=== PATIENT | female | born 1950 | race Caucasian/White ===

== ENCOUNTER 2021-11-29 12:41 | Outpatient (CLI) | payer MEDICARE, BC, SELFPAY ==
--- NOTE | 2021-11-29 13:00 | CRLHL7_ITS ---
For Patients: As a result of the Century Cures Act, medical imaging exams and procedure reports are released immediately into your electronic medical record. You may view this report before your referring provider. If you have questions, please contact your health care provider. DXA BONE MINERAL DENSITY STUDY Reason for exam: Screening. Current height (in): 65. Weight (lb): 125. Menopause age: 50. Ethnicity: White. 1. Have you had a previous hip or vertebral fracture? No. 2. Have you had any fractures during your adult life which did not result from significant trauma (e.g., auto accident)? No. 3. Did either of your parents have a hip fracture? No. 4. Do you smoke? No. 5. Have you ever taken Glucocorticoids? No. 6. Do you have rheumatoid arthritis? No. 7. Do you have secondary osteoporosis? No. 8. Do you drink 3 or more alcoholic drinks per day? No. 9. Are you being treated for osteoporosis? No. 10. Have you ever taken any of the following medications: Actonel, Evista, Fosamax, Miacalcin, Reclast, Boniva, Forteo, HRT (i.e. estrogen/hormone therapy), Protelos, Prolia, Vitamin D, Calcium, other ??? please specify. ANSWER: Yes, Fosamax, vitamin D. 11. Do you have any of the following medical conditions: Anorexia or bulimia, asthma or emphysema, end stage renal disease, hyperparathyroidism, any seizure disorders, cancer, inflammatory bowel diseases, hysterectomy, other ??? please specify. ANSWER: No. 12. What was your maximum height (inches)? 65.5. 13. Do you perform weight bearing exercise regularly? No. 14. Do you regularly consume dairy products? Yes. 15. Do you drink caffeinated beverages? Yes. If female: 16. At what age did your period start? 12. 17. Are you premenopausal? No. 18. How many full term pregnancies have you had? 2. 19. Have you ever missed your period for more than 6 months in a row (not including or menopause)? No. TECHNIQUE: Bone mineral density study was performed using the [employer]. FINDINGS: The results of the study expressed as bone mineral density (BMD) are as follows: Lumbar spine L1 to L4: BMD: 0.963 g/cm2. T-score: -0.8. Z-score: 1.5 Neck Left: BMD: 0.620 g/cm2. T-score: -2.1. Z-score: -0.1 Right: BMD: 0.681 g/cm2. T-score: -1.5. Z-score: 0.5 Total Left: BMD: 0.819 g/cm2. T-score: -1.0. Z-score: 0.7 Right: BMD: 0.887 g/cm2. T-score: -0.5. Z-score: 1.2 IMPRESSION: Osteopenia. FRAX 10-year Fracture Risk Major Osteoporotic Fracture: 12% Hip Fracture: 2.9% Reported Risk Factors: [place] () Neck BMD=0.620, BMI= 20.8 Yamil Wilder M.D. Diagnostic Radiologist [email or web address] KWASI/rc tatum/Dictated by: Yamil Wilder MD @ 11/30/2021 8:13:00 AM (Electronically Signed)
== END 2021-11-29 12:42 | disposition home or self-care (01) ==
PROVIDERS: PCP Family Medicine; Visit Provider Family Medicine
DX: Z13.820 Encounter for screening for osteoporosis (principal); M85.88 Other specified disorders of bone density and structure, other site; Z78.0 Asymptomatic menopausal state
CPT/HCPCS: 77080

== ENCOUNTER 2022-11-20 11:20 | Outpatient (CLI) | payer MEDICARE, BC, SELFPAY | END 2022-11-20 11:21 | disposition home or self-care (01) | PROVIDERS: PCP Family Medicine; Visit Provider Family Medicine | DX: Z00.00 Encounter for general adult medical examination without abnormal findings (principal); E78.00 Pure hypercholesterolemia, unspecified; I10 Essential (primary) hypertension; R53.83 Other fatigue; M85.80 Other specified disorders of bone density and structure, unspecified site; R19.8 Other specified symptoms and signs involving the digestive system and abdomen; R00.2 Palpitations; Z87.898 Personal history of other specified conditions | CPT/HCPCS: 80053; 80061; 82306; 84443 ==

== ENCOUNTER 2023-12-30 08:23 | Outpatient (CLI) | payer MEDICARE, BC, SELFPAY ==
--- OUTSIDE RECORDS SUMMARY | 2023-12-31 11:55 | XMS_ITS | Encounter Summary ---
Author Organization [facility] Address [address] [place] [address] Care Team Providers Care Hydrometer Tester Name Role Phone Mounika Vidal APRN C.NToddPTodd, M.S.N. Primary Car e Provider Reason for Visit * Outpatient (Routine) - Closed Specialty Diagnoses / Procedures Referred By Bk lnad Referred To Contact Otorhinolaryngology Adalgisa Bundy P.ATodd-CTodd [address] [place] [address] Phone: tel: fax: [facility] Region Referral ID Status Reason Start Date Expiration Date Visits Re quested Visits Authorized [id number] Closed 12/02/2022 12/01/2025 1 1 Encounter Details Date Type Department Care Team (Latest Contact Info) Description 10/06/2023 10:30 AM CDT Office Visit Department of Otorhinolaryngology in [place], [place] [address] [place] [address] Adalgisa Bundy P.ATodd-CTodd [address] [place] [address] Loss Hearing Conductive Unilateral (Primary Dx); Loss Hearing Sensory Unilateral; Mastoid Disorder Left Social History Tobacco Use Types Packs/Day Years Used Date Smoking Tobacco: Former Cigarettes Smokeless Tobacco: Never Alcohol Use Standard Drinks/Week Comments Yes 0 (1 standard drink = 0.6 oz pur e alcohol) [facility] Utilities Answer Date Recorded In the past 12 months has th e electric, gas, oil, or water company threatened to shut off services in your home? No 10/02/2023 Humiliation, Afraid, Rape, and Kick questionnair e Answer Date Recorded Within the last year, have y ou been afraid of your partner or ex-partner? No 09/23/2022 Within the last year, have y ou been humiliated or emotionally abused in other ways by your partner or ex-partner? No Within the last year, have y ou been kicked, hit, slapped, or otherwise physically hurt by your partner or ex-partner? No 09/23/2022 Within the last year, have y ou been raped or forced to have any kind of sexual activity by your partner or ex-partner? No 09/23/2022 Social Connection and Isolat ion Panel [NHANES] Answer Date Recorded In a typical week, how many times do you talk on the phone with family, friends, or neighbors? More than three times a week 08/11/2020 How often do you get togethe r with friends or relatives? Once a week 08/11/2020 How often do you attend chur ch or amish services? More than 4 times per year 08/11/2020 Do you belong to any clubs o r organizations such as congregation groups, unions, fraternal or athletic groups, or school groups? Yes 08/11/2020 How often do you attend meet ings of the clubs or organizations you belong to? More than 4 times per year 08/11/2020 Are you , , di vorced, , never , or living with a partner? 08/11/2020 AUDIT-C Answer Date Recorded Q1: How often do you have a drink containing alc ohol? 2-3 times a week 08/11/2020 Q2: How many drinks containi ng alcohol do you have on a typical day when you are drinking? 1 or 2 08/11/2020 Q3: How often do you have si x or more drinks on one occasion? Never 08/11/2020 Overall Financial Resource Strain (CARDIA) Answe r Date Recorded How hard is it for you to pa y for the very basics like food, housing, medical care, and heating? Not hard at all 09/23/2022 PHQ-2 Answer Date Recorded PHQ-2 Score 0 07/19/2021 [facility] - Occupational Stress Questionnaire Answer Date Recorded Do you feel stress - tense, restless, nervous, or anxious, or unable to sleep at night because your mind is troubled all the time - these days? Only a little 08/11/2020 Exercise Vital Sign Answer Date Recorde d On average, how many days pe r week do you engage in moderate to strenuous exercise (like a brisk walk)? 3 days 10/02/2023 On average, how many minutes do you engage in exercise at this level? 50 min 10/02/2023 Hunger Vital Sign Answer Date Recorded Within the past 12 months, y ou worried that your food would run out before you got the money to buy more. Never true 10/02/19 24 Within the past 12 months, t he food you bought just didn't last and you didn't have money to get more. Never true 10/02/2023 PRAPARE - Transportation Answer Date Re corded In the past 12 months, has l ack of transportation kept you from medical appointments or from getting medications? No 03/2023 In the past 12 months, has l ack of transportation kept you from meetings, work, or from getting things needed for daily living? No 10/02/2023 Nutrition Answer Date Recorded On average, how many serving s of fruits and vegetables do you eat per day (serving size is equal to 1 cup or approximately the size of a tennis ball)? 0-2 10/02/2023 Dental Answer Date Recorded Dental: Regular Dentist Yes 03/08/19 Employment Answer Date Recorded Employment status Retired 10/02/2023 Housing Stability Answer Date Recorded What is your living situation today? I have a [facility] place to live 10/02/2023 Education Answer Date Recorded What is the highest level of school you have completed or the highest degree you have received? 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 - 10/06/2023 10:30 AM CDT SUBJECTIVE CHIEF COMPLAINT/REASON FOR VISIT Ear check and cleaning HISTORY OF PRESENT ILLNESS Laverne Birmingham is a pleasant 73 y.o. female here for left mastoid cleaning. She has previouslyfollowed with myself and [place] [facility] for left mastoid cleanings every 6 months, also is establishedwith ENT in [place] who takes care of her ear during the winter months. Laverne is status post left ty mpanomastoidectomy with PORP ossiculoplasty for cholesteatoma removal in June of [address] Armstrong. She does continue to note intermittent drainage or moisture in the left side, does not use drops unless drainage is significantly purulent or malodorous. She denies any hearing changesor other ear signs or symptoms. She has utilized bilateral hearing aids since her ear surgery in 2008. The following portions of the patient's history were reviewed: allergies, current medications, problem list, family history, medical history, social history and surgical history OBJECTIVE PHYSICAL EXAMINATION Right external ear normal. Right ear canal with mild nonobstructing cerumen removed with instrumentation. The right tympanic membrane is intact with clear middle ear. Left external ears normal. Left ear canal with postop changes, significant moist squamous epithelium mixed with ceruminous debris isfilling the mastoid cavity and was removed with suction. Cerumen on anterior canal wall removed with instrumentation. No erythema or granulation tissue. Tympanic membrane is intact. ASSESSMENT / PLAN 1. Mastoid disorder, left 2. 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 Will return to me in 1 year for mastoid maintenance care and she will follow with ENT in [place] in approximately 6 months. Laverne will reach out sooner with questions or concerns. Adalgisa Bundy P.A.-C. documented in this encounter Plan of Treatment Not on file documented as of this encounter Visit Diagnoses Diagnosis Loss Hearing Conductive Unilateral- Primary Loss Hearing Sensory Unilateral Mastoid Disorder Left documented in this encounter Care Teams Hydrometer Tester Relationship Specialty Start Date End Date Mounika Vidal APRN, C.N.P., M.S.N. [address] [place] [address] PCP - General 09/05/20 documented as of this encounter
--- OUTSIDE RECORDS SUMMARY | 2023-12-31 11:55 | XMS_ITS | Clinical Summary ---
Author Organization [facility] Address [place], [place] [address] Care Team Providers Care Consumer Science Teacher Name Role Phone Amelia Stewart MD Primary Care Provider + Family History Medical History Relation Name Comments Cancer-prostate Father Cancer-breast Mother Relation Name Status Comments Father Mother Social History Tobacco Use Types Packs/Day Years Used Date Smoking Tobacco: Never Assessed Sex and Gender Information Value Date Recorded Sex Assigned at Not on file Gender Identity Not on file Sexual Orientation Not on file Obstetrics History Plan of Treatment Health Maintenance Due Date Last Done Comments Tdap 06/05/1961 Depression screening for age 12+ 1960 BMI (ht and wt on same day) for age 18+ 1966 Hepatitis C screening for ag e 18-79 1966 Tetanus booster 1968 Colonoscopy through age 75 1993 Lipids for age 45-75 1993 Zoster (shingles) series for age 50+ (1 of 2) 1998 DEXA/DXA scan for age 65+ 2013 Pneumococcal series for age 65+ (1 of 1 - PCV) 2013 RSV vaccine for adults or (1 - 1-dose 75+ series) 06/05/2023 COVID-19 vaccine series (2023- season) 2023 11/30/2021, 12/25/2020, 05/16/2020, Additional history exists Influenza for age 65+ 11/02/2023 Care Teams Consumer Science Teacher Relationship Specialty Start Date End Date Amelia Stewart MD [address] [place] [address] PCP - General Family Practice 09/27/22
--- OUTSIDE RECORDS SUMMARY | 2023-12-31 11:55 | XMS_ITS | Referral Summary ---
Author Organization [facility] Address [address] [place] [address] Care Team Providers Care Die Welder Name Role Phone Mounika Vidal APRN C.N.P., M.S.N. Primary Car e Provider Source Comments Patient records contain information from all sites at [facility]. For routine questions regarding patient records, call [phone] during business hours, M-F 8:00 AM - 5:00 PM Central Time. Record requests for emergency care only can be directed to [phone] at any time.[facility] Encounters Date Type Department Care Team Description 11/04/2023 Orders Only [facility] PCP TH MNT Mounika Vidal APRN C.N.P., M.S.N. Monitoring For Therapeutic Drug Therapy 10/06/2023 10:30 AM CDT Office Visit Department of Otorhinolaryngology in [place], [place] [address], [place] [address] Adalgisa Bundy P.A.Stewart 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 Allergies No known active allergies Medications * This document contains information received from the source organization and may not represent a complete record from that organization. ascorbic acid-bioflavono ids 1,000-100 mg tablet extended release Take 1 tablet by mouth daily. 1 Active coenzyme Q10 (CO Q-10) 200 mg capsule Take 1 capsule by mouth daily. 9 Active evening primrose oil 500 mg capsule Take 1,300 mg by mouth daily. 0 Active glucosamine/cho ndr ramsey A sod (GLUCOSAMINE-CH ONDROITIN) 1,500-1,200 mg/30 mL liquid Take 1,500 mg by mouth daily. 1 Active turmeric 400 mg capsule Take by mouth. Activ e green tea leaf extract (Green Tea) capsule Take by mouth 3 (three) times a week. Active omega 1-osn-gvt-fish oil 1,000 mg (120 mg-180 mg) capsule Take by mouth. Activ e psyllium, with aspartame, (METAMUCIL) 3.4 gram packet Take 1 packet by mouth 3 (three) times a day. Active vit C/vit E ac/lut/copper/z inc (PRESERVISION LUTEIN ORAL) Take by mouth. Ac tive vitamin E 400 unit capsule Take 400 Units by mouth daily. Active ascorbic acid, vitamin C, (VITAMIN C) 1,000 mg tablet Take 1,000 mg by mouth daily. Super Bio C 1000 mg daily Active plant stanol demetris (CHOLEST OFF PLUS ORAL) Take 900 mg by mouth daily. Active cinnamon bark (CINNAMON ORAL) Take 1,200 mg by mouth daily. Active cyanocobalamin, vitamin B-12, 2,500 mcg tablet Take by mouth 3 (three) times a week. Active glutamine 500 mg capsule Take 500 mg by mouth 3 (three) times a week. Active UNABLE TO FIND OTC Progest Breast Cream 1 application 3 times weekly for prevention Active amoxicillin (AMOXIL) 500 mg capsule 1 Active BIOTIN ORAL Take by mouth every other day. Active GREEN TEA EXTRACT ORAL Take 1 tablet by mouth every other day. Active miscellaneous medical supply miscIndications :Osteopenia Pro Ab Bone Builder. 1 Pack PO Daily. 1 each 3 2 Active simvastatin (ZOCOR) 20 mg tabletIndicatio ns:Hypercholest erolemia TAKE 1 TABLET AT BEDTIME FOR HIGH CHOLESTEROL 90 tablet 2 2 Active lisinopriL (PRINIVIL,ZESTR IL) 10 mg tabletIndicatio ns:Hypertension Essential Primary TAKE 1 TABLET EVERY DAY FOR HIGH BLOOD PRESSURE 90 tablet 3 Active Active Problems Problem Noted Date Diagnosed Date Malignant Neoplasm Of Skin Basal Cell Carcinoma 06/30/2023 Hypertension Essential Primary 07/21/2020 Assessment & Plan (07/25/2020 11:02 AM CDT): She is feeling fairly well. She has complained of some palpitations recently. She recently returned from wintering in [place]. Pressures have been elevated in the past, but she previously declined medications. She was started on lisinopril 10 mg daily on 07/21/2020. She is tolerating it well. She is physically active and deny's any chest pain or shortness of breath. She is doing well. Assessment & Plan (07/21/2020 4:49 PM CDT): She is feeling fairly well. She has complained of some palpitations recently. She just returned from wintering in [place]. Pressures have been elevated in the past, but she previously declined medications. She is physically active and deny's any chest pain or shortness of breath. She is doing well. Gastroesophageal Reflux Disease 10/24/2017 Assessment & Plan (07/25/2020 11:02 AM CDT): She is doing fine at this time. Assessment & Plan (01/04/2020 5:47 PM CHANNEL CEMENTER OUTSOLE MACHINE): She is doing fine at this time. Assessment & Plan (09/27/2019 11:10 AM CDT): She is doing fine at this time. Assessment & Plan (12/01/2018 3:24 PM CDT): She is on ranitidine 150 mg at bedtime with good results. Assessment & Plan (07/22/2018 5:38 PM CDT): She is on ranitidine 150 mg at bedtime with good results. Assessment & Plan (12/31/2017 1:12 PM CDT): She is on ranitidine 150 mg at bedtime with good results. Osteopenia 01/03/2015 Assessment & Plan (01/04/2020 5:47 PM CHANNEL CEMENTER OUTSOLE MACHINE): She takes calcium and vitamin-D as well as doing weight-bearing exercise. She has had no problems. Assessment & Plan (09/17/2019 1:44 PM CDT): She takes calcium and vitamin-D as well as doing weight-bearing exercise. She has had no problems. Assessment & Plan (12/01/2018 3:24 PM CDT): She takes calcium and vitamin-D as well as doing weight-bearing exercise. She has had no problems. Assessment & Plan (07/22/2018 5:38 PM CDT): She takes calcium and vitamin-D as well as doing weight-bearing exercise. She has had no problems. Assessment & Plan (12/31/2017 1:12 PM CDT): She takes calcium and vitamin-D as well as doing weight-bearing exercise. She has had no problems. Hypercholesterolemia 04/20/2010 Assessment & Plan (07/25/2020 11:01 AM CDT): She is feeling fairly well. She is taking her simvastatin 20 mg daily and is tolerating it well. She is keeping active, watching her diet and corrine any chest pain or shortness of breath. Assessment & Plan (01/04/2020 5:46 PM CHANNEL CEMENTER OUTSOLE MACHINE): She is feeling fairly well. She is taking her simvastatin 20 mg daily and is tolerating it well. She is keeping active, watching her diet and corrine any chest pain or shortness of breath. Assessment & Plan (09/17/2019 1:43 PM CDT): She is feeling fairly well. She is taking her simvastatin 20 mg daily and is tolerating it well. She is keeping active, watching her diet and corrine any chest pain or shortness of breath. Assessment & Plan (12/01/2018 3:24 PM CDT): She is feeling fairly well. She is taking her simvastatin 20 mg daily and is tolerating it well. She is keeping active, watching her diet and corrine any chest pain or shortness of breath. Assessment & Plan (07/22/2018 5:38 PM CDT): She is feeling fairly well. She is taking her simvastatin 20 mg daily and is tolerating it well. She is keeping active, watching her diet and corrine any chest pain or shortness of breath. Assessment & Plan (12/31/2017 1:11 PM CDT): She is doing fine with no concerns or complaints. She continues to take her aeni-zwq-timzafw medications noted in the medication list. She continues to be very physically active. Loss Hearing Conductive Unilateral 12/02/2008 Loss Hearing Sensory Unilateral 12/02/2008 Smoking Tobacco Use Personal History 04/29/2008 Assessment & Plan (01/04/2020 5:47 PM CHANNEL CEMENTER OUTSOLE MACHINE): She has been smoke-free for years. Assessment & Plan (09/27/2019 11:10 AM CDT): She has been smoke-free for years. Assessment & Plan (12/01/2018 3:24 PM CDT): She has continued to smoke. Assessment & Plan (07/22/2018 5:38 PM CDT): She has continued to smoke. Assessment & Plan (12/31/2017 1:12 PM CDT): She has continued to smoke. Immunizations Name Administration Dates Next Due H1N1 All Forms 03/29/2009 HZV (ZOSTAVAX) 08/09/2008 Influenza Whole 02/22/2004 Influenza high dose QV(65 ye ars or older) (PF) 01/08/2021 Influenza, Quadrivalent, Adj uvanted, Preservative Free 12/09/2019 Influenza, Seasonal, Injectable 11/16/2011,11/13 Influenza, Unspecified 12/31/2016,2014,11/23/2013,2012,11/16/2011,12/15/2009 PCV13 01/04/2015 PPSV23 11/21/2015 RZV (SHINGRIX) 03/30/2019,12/09/2018 SARS-COV-2 (COVID-19) - MODERNA(Discontinued) 05/16/2020,04/13/2020 Tdap 01/14/2018,11/12/2006 influenza trivalent high dos e (HD)(PF) 12/09/2018,12/19/2017,12/31/2016 influenza trivalent vaccine (6 months and older)(PF) 11/23/2008 Social History Tobacco Use Types Packs/Day Years Used Date Smoking Tobacco: Former Cigarettes Smokeless Tobacco: Never Tobacco Cessation:Counseling Given: Not Answered Alcohol Use Standard Drinks/Week Comments Yes 0 (1 standard drink = 0.6 oz pur e alcohol) [facility]ities Answer Date Recorded In the past 12 months has e [email or web address], gas, oil, or water [employer] threatened to shut off services in your [...] week 08/11/2020 How often do you attend up health system or jew services? More than 4 times per year 08/11/2020 Do you belong to any clubs o r organizations such as yarsani groups, unions, fraternal or athletic groups, or [...] Answer Date Recorded PHQ-2 Score 0 07/19/2021 [facility] - Occupational Stress Questionnaire Answer Date Recorded [...] your living situation today? I have a [facility] place to live 10/02/2023 Education Answer Date Recorded What is the highest level of school you have completed or the highest degree you have received? Master's degree (e.g., MA, MS, Rosa Isela, MEd, DEBUG TECHNICIAN, CLAUDIA) 09/20/2019 Comments No Sex and Gender Information Value Date Recorded Sex Assigned at Female 12/17/2020 12:33 PM CDT Legal Sex Female 8:20 PM CHANNEL CEMENTER OUTSOLE MACHINE Gender Identity Female 09/20/2019 9:51 PM CDT Sexual Orientation Straight 09/20/2019 9: 51 PM CDT Last Filed Vital Signs Vital Sign Reading Time Taken Comments Blood Pressure 131/79 07/09/2023 12:49 PM CDT Pulse 79 07/09/2023 12:49 PM CDT Temperature 37 ??C (98.6 ??F) 07/09/2023 12:49 PM CDT Respiratory Rate 12 09/27/2019 10:34 AM CDT Oxygen Saturation - - Inhaled Oxygen Concentration - - Weight 57 kg (125 lb 10.6 oz) 07/09/2023 12:49 P M CDT Height 162 cm (5' 3.78) 07/19/2021 11:16 AM CDT Body Mass Index 21.72 07/19/2021 11:16 AM CDT Plan of Treatment Not on file Medical Devices Implanted Type Area Fleet Administrative Assistant Device Identifier Shelf Expiration Date Model / Serial / Lot Ear Oss Ti Partial System Centered Adj.-Frye [id number] Implanted:Qty: 1 on 06/07/2008 Ear Implant Other/Legacy - See Implant Description Unknown Description:Device Manufactu rer - Partial-centered Model 655 . 3T conditional Body Location - Other. Left. Device Status Text - AUD [id number]. Procedures Procedure Name Priority Date/Time Associated Diagnosis Comments BI BREAST SCREENING BILATERAL WITH TOMOSYNTHESIS RAD - Routine (most inpatients and all outpatients) 09/16/2023 1:12 PM CDT Screening Mammogram Breast Cancer COLOGUARD Routine 08/07/2021 9:30 AM CDT Screening Cancer Colon LIPID PANEL, S Routine 07/16/2021 8:38 AM CDT Hypercholesterol emia Hypertension Essential Primary Osteopenia COMPREHENSIVE METABOLIC PANEL, S/P Routine 07/16/2021 8:38 AM CDT Hypercholesterol emia Hypertension Essential Primary Osteopenia from Last 3 Months or Most Recently Relevant to Health Maintenance Results * BI Breast Screening Bilateral with Tomosynthesis (09/16/2023 1:12 PM CDT) Anatomical Region Laterality Modality Breast, Breast Imaging RST L OS, Breast Imaging ARZ LOS, Breast Imaging FLA LOS Bilateral Mammography Impressions 09/16/2023 1:22 PM CDT Negative. RECOMMENDATION: ??Annual Screening Mammogram ASSESSMENT: ??BI-RADS: 1: Negative. Narrative 09/16/2023 1:22 PM CDT EXAM: ??BI BREAST SCREENING BILATERAL WITH TOMOSYNTHESIS Current study was evaluated with a Computer Aided Detection (CAD) system. INDICATION: ??Screening mammogram. COMPARISON: ??Prior exam(s) were available and reviewed for comparison. DENSITY: ??c. The breast(s) are heterogeneously dense, which may obscure small masses. FINDINGS: ??No mammographic findings of malignancy. Procedure Note Lillian Isaac M.D. - 09/16/2023 EXAM: BI BREAST SCREENING BILATERAL WITH TOMOSYNTHESIS Current study was evaluated with a Computer Aided Detection (CAD) system. INDICATION: Screening mammogram. COMPARISON: Prior exam(s) were available and reviewed for comparison. DENSITY: c. The breast(s) are heterogeneously dense, which may obscuresmall masses. FINDINGS: No mammographic findings of malignancy. IMPRESSION: Negative. RECOMMENDATION: Annual Screening Mammogram ASSESSMENT: BI-RADS: 1: Negative. us Mounika Vidal APRN, C.N.P., M.S.N. [facility] Final Result * Cologuard-Sent Out Lab (08/07/2021 9:30 AM CDT) [facility] Signature Result Negative Negative 08/12/2021 10:37 AM CDT EXLI Comment: NEGATIVE TEST RESULT. A negative Cologuard result indicates a low likelihood that a colorectal cancer (CRC) or advanced adenoma (adenomatous polyps with more advanced pre-malignant features) ??is present. The chance that a person with a negative Cologuard test has a colorectal cancer is less than 1 in 1500 (negative predictive value >99.9%) or has an ??advanced adenoma is less than ??5.3% (negative predictive value 94.7%). These data are based on a prospective cross-sectional study of 10,000 individuals at average risk for colorectal cancer who were screened with both Cologuard and colonoscopy. (Chela Wise et al, N Engl J Med 2014;370(14):4452-7748) The normal value (reference range) for this assay is negative. COLOGUARD RE-SCREENING RECOMMENDATION: Periodic colorectal cancer screening is an important part of preventive healthcare for asymptomatic individuals at average risk for colorectal cancer. ??Following a negative Cologuard result, the [place] Cancer Society and U.S. Multi-Society Task Force screening guidelines recommend a Cologuard re-screening interval of 3 years. References: [place] Cancer Society Guideline for Colorectal Cancer Screening: https://www.cancer.org/cancer/ishvk-drsnbo-mhcxyn/detection- diagnosis-staging/acs-recommendations.html.; Jaciel VALLES, Dionne BENAVIDEZ, Danii ReynoldsK, Colorectal Cancer Screening: Recommendations for Physicians and Patients from the U.S. Multi-Society Task Force on Colorectal Cancer Screening , Am J Gastroenterology 2017; 112:1816-4807. TEST DESCRIPTION: Composite algorithmic analysis of stool DNA-biomarkers with hemoglobin immunoassay. ?? Quantitative values of individual biomarkers are not reportable and are not associated with individual biomarker result reference ranges. Cologuard is intended for colorectal cancer screening of adults of either sex, 45 years or older, who are at average-risk for colorectal cancer (CRC). Cologuard has been approved for use by the U.S. FDA. The performance of Cologuard was established in a cross sectional study of average-risk adults aged 50-84. Cologuard performance in patients ages 45 to 49 years was estimated by sub-group analysis of near-age groups. Colonoscopies performed for a positive result may find as the most clinically significant lesion: colorectal cancer [4.0%], advanced adenoma (including sessile serrated polyps greater than or equal to 1cm diameter) [20%] or non- advanced adenoma [31%]; or no colorectal neoplasia [45%]. These estimates are derived from a prospective cross-sectional screening study of 10,000 individuals at average risk for colorectal cancer who were screened with both Cologuard and colonoscopy. (Chela Cavazos. et al, N Engl J Med 2014;370(14):0759-0146.) Cologuard may produce a false negative or false positive result (no colorectal cancer or precancerous polyp present at colonoscopy follow up). A negative Cologuard test result does not guarantee the absence of CRC or advanced adenoma (pre-cancer). The current Cologuard screening interval is every 3 years. ([place] Cancer Society and U.S. Multi-Society Task Force). Cologuard performance data in a 10,000 patient pivotal study using colonoscopy as the reference method can be accessed at the following location: www.[employer]results. Additional description of the Cologuard test process, warnings and precautions can be found at www.cologuard.com. Stool (Stool) 08/07/2021 9:3 0 AM CDT 08/08/2021 4:59 PM CDT Casey Covarrubias M.D. LAB BODY FLUIDS AND STOOLS ORD ERABLES Final Result [employer] [address] [place] [address] EXLI [place] [address] [facility], [address] [place] [address] * Lipid Panel (07/16/2021 8:38 AM CDT) Cholesterol, Total 181 mg/dL 2021 1:28 PM CDT MKTO Comment: ----REFERENCE VALUE---- Desirable: < 200 Borderline high: 200 - 239 High: > or = 240 Triglycerides 47 mg/dL 07/16/2021 1:28 PM CDT MKTO Comment: ----REFERENCE VALUE---- Normal: <150 Borderline high: 150-199 High: 200-499 Very high: > or =500 Cholesterol, HDL 69 >=50 mg/dL 07/17/19 1:28 PM CDT MKTO Calculated LDL 103 mg/dL 07/16/2021 1:28 PM CDT MKTO Comment: ----REFERENCE VALUE---- Desirable: <100 mg/dL Above Desirable: 100-129 mg/dL Borderline High: 130-159 mg/dL High: 160-189 mg/dL Very High: >=190 mg/dL Cholesterol, Non-HDL, Calculated 112 mg/dL 07/16/2021 1:28 PM CDT MKTO Comment: ----REFERENCE VALUE---- Desirable: <130 Above Desirable: 130-159 Borderline high: 160-189 High: 190-219 Very high: > or =220 Blood (Blood, Venous) 07/16/2021 8:38 AM CDT 07/16/2021 11:41 AM CDT Casey Covarrubias M.D. LAB BLOOD ADD-ON Final Result Performing Organization Address [facility]/State/ZIP Co de Phone Number [facility] [address] [place] [address], [facility] [place] [address] * Comprehensive Metabolic Panel (07/16/2021 8:38 AM CDT) Potassium, P 4.5 3.6 - 5.2 mmol/L 07/16/2021 1:28 PM CDT MKTO Sodium, P 142 135 - 145 mmol/L 07/16/2021 1:28 PM CDT MKTO Chloride, P 104 98 - 107 mmol/L 07/16/2021 1:28 PM CDT MKTO Bicarbonate, P 28 22 - 29 mmol/L 07/16/2021 1:28 PM CDT MKTO Anion Gap, P 10 7 - 15 07/16/2021 1:28 PM CDT MKTO BUN (Blood Urea Nitrogen), P 16 6 - 21 mg/dL 07/16/2021 1:28 PM CDT MKTO Creatinine 0.93 0.59 - 1.04 mg/dL 07/16/2021 1:28 PM CDT MKTO eGFR-Black/ 71 >=60 mL/min/BS A 07/16/2021 1:28 PM CDT MKTO Comment: ----ADDITIONAL INFORMATION---- Estimated GFR calculated using the 2009 CKD_EPI creatinine equation. eGFR Non-Black/ 61 >=60 mL/min/BS A 07/16/2021 1:28 PM CDT MKTO Comment: ----ADDITIONAL INFORMATION---- Estimated GFR calculated using the 2009 CKD_EPI creatinine equation. Calcium, Total, P 10.1 8.8 - 10.2 mg/dL 07/16/2021 1:28 PM CDT MKTO Glucose, P 101 70 - 140 mg/dL 07/16/2021 1:28 PM CDT MKTO Protein, Total, P 7.5 6.3 - 7.9 g/dL 07/16/2021 1:28 PM CDT MKTO Albumin, P 5.0 3.5 - 5.0 g/dL 07/16/2021 1:28 PM CDT MKTO Aspartate Aminotransferase (AST), P 39 8 - 43 U/L 07/16/2021 1:28 PM CDT MKTO Alkaline Phosphatase, P 63 35 - 104 U/L 07/16/2021 1:28 PM CDT MKTO Alanine Aminotransferase (ALT), P 25 7 - 45 U/L 07/16/2021 1:28 PM CDT MKTO Bilirubin, Total, P 0.7 <=1.2 mg/dL 07/16/2021 1:28 PM CDT MKTO Blood (Blood, Venous) 07/16/2021 8:38 AM CDT 07/16/2021 11:41 AM CDT Csaey Covarrubias M.D. LAB BLOOD ADD-ON Final Result [facility] [address] [place] [address], [place] MKTO [facility] [place] [address] [place] [address] from Last 3 Months or Most Recently Relevant to Health Maintenance Insurance MEDICARE [facility] Care Teams Die Welder Relationship Specialty Start Date End Date Mounika Vidal APRN, C.N.P., M.S.N. [address] [place] [address] PCP - General 09/05/20
--- OUTSIDE RECORDS SUMMARY | 2023-12-31 11:55 | XMS_ITS | Encounter Summary ---
Author Organization [facility] Address [address] [place] [address] Care Team Providers Care Germination Worker Name Role Phone Mounika Vidal APRN, C.N.P., M.S.N. Primary Car e Provider Encounter Details Date Type Department Care Team (Late st Contact Info) Description 11/04/2023 Orders Only [facility] PCP [facility] MNT Mounika Vidal APRN, C.N.P., M.S.N. [address] [place] [phone] Monitoring For Therapeutic Drug Therapy Social History Tobacco Use Types Packs/Day Years Used Date Smoking Tobacco: Former Cigarettes Smokeless Tobacco: Never Alcohol Use Standard Drinks/Week Comments Yes 0 (1 standard drink = 0.6 oz pur e alcohol) [facility] Utilities Answer Date Recorded In the past 12 months has [facility] [employer], gas, oil, or water [employer] threatened to shut off services in your [...] 08/11/2020 How often do you attend chur or tenriism services? More than 4 times per year 08/11/2020 Do you belong to any clubs o r organizations such as jainism groups, unions, fraternal or athletic groups, or [...] Answer Date Recorded PHQ-2 Score 0 07/19/2021 [facility] [place] [facility] - Occupational Stress Questionnaire Answer Date [...] your living situation today? I have a [facility] place to live 10/02/2023 Education Answer Date Recorded What is the highest level of school you have completed or the highest degree you have received? Master's degree (e.g., MA, MS, Rosa Isela, MEd, HIGH SCHOOL FOREIGN LANGUAGE TEACHER, CLAUDIA) 09/20/2019 Comments No Sex and Gender Information Value Date Recorded Sex Assigned at Female 12/17/2020 12:33 PM CDT Legal Sex Female 8:20 PM CLINICAL LAW PROFESSOR Gender Identity Female 09/20/2019 9:51 PM CDT Sexual Orientation Straight 09/20/2019 9: 51 PM CDT documented as of this encounter Plan of Treatment Scheduled Orders Name Type Priority Associated Diagnoses Orde r Schedule Basic Metabolic Panel Lab Routine Monitoring For Therapeutic Drug Therapy Expected: 11/18/2023, Expires: 05/02/2024 documented as of this encounter Visit Diagnoses Diagnosis Monitoring For Therapeutic Drug Therapy documented in this encounter Care Teams Germination Worker Relationship Specialty Start Date End Date Mounika Vidal APRN, C.N.P., M.S.N. [address] [place] [id number] PCP - General 09/05/20 documented as of this encounter
--- OUTSIDE RECORDS SUMMARY | 2023-12-31 11:55 | XMS_ITS ---
Author Organization [facility] Address [address] [place] [address] Care Team Providers Care Can Reforming Machine Operator Name Role Phone Unavailable Unavailable Unavailable Surgery Details Not on file Complications Check Surgery Details section. Procedure Estimated Blood Loss Check Surgery Details section. Procedure Findings Check Surgery Details section. Procedure Specimens Taken Check Surgery Details section.
--- OUTSIDE RECORDS SUMMARY | 2023-12-31 11:55 | XMS_ITS | Clinical Summary ---
Author Organization [facility] Address [address] [place] [id number] Care Team Providers Care Child Development Assistant Name Role Phone Mounika Vidal APRN C.NOvidio, M.S.N. Primary Car e Provider Source Comments Patient records contain information from all sites at [facility]. For routine questions regarding patient records, call [phone] during business hours, M-F 8:00 AM - 5:00 PM Central Time. Record requests for emergency care only can be directed to [phone] at any time.[facility] Allergies No known active allergies Medications * [...] 3 (three) times a week. Active omega 6-fam-dem-fish oil 1,000 mg (120 mg-180 mg) capsule [...] recently. She recently returned from wintering in [place]. Pressures have been elevated in the past, [...] recently. She just returned from wintering in [place]. Pressures have been elevated in the past, but she previously declined medications. She is physically active and deny's any chest pain or shortness of breath. She is doing well. Gastroesophageal Reflux Disease 10/24/2017 Assessment & Plan (07/25/2020 11:02 AM CDT): She is doing fine at this time. Assessment & Plan (01/04/2020 5:47 PM FRENCH INSTRUCTOR): She is doing fine at this time. [...] 01/03/2015 Assessment & Plan (01/04/2020 5:47 PM FRENCH INSTRUCTOR): She takes calcium and vitamin-D as well [...] breath. Assessment & Plan (01/04/2020 5:46 PM FRENCH INSTRUCTOR): She is feeling fairly well. She is [...] or complaints. She continues to take her mupb-bwq-aipdwgr medications noted in the medication list. She continues to be very physically active. 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 Assessment & Plan (09/27/2019 11:10 AM CDT): She has been smoke-free for years. Assessment & Plan (12/01/2018 3:24 PM CDT): She has continued to smoke. Assessment & Plan (07/22/2018 5:38 PM CDT): She has continued to smoke. Assessment & Plan (12/31/2017 1:12 PM CDT): She has continued to smoke. Encounters Date Type Department Care Team Description 11/04/2023 Orders Only [facility]CP [facility] Mounika Vidal APRN, C.N.P., M.S.N. Monitoring For Therapeutic Drug Therapy 10/06/2023 10:30 AM CDT Office Visit Department of Otorhinolaryngology in [place], [place] [address] [id number] Adalgisa Bundy, P.A.-C. 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 Immunizations Name Administration Dates Next Due H1N1 [...] trivalent vaccine (6 months and older)(PF) 11/23/2008 Family History Medical History Relation Name Comments Diabetes Brother Harjinder Obesity Brother Harjinder Hypertension Father Jam Prostate cancer Father Jam Sleep apnea Father Jam Breast cancer Mother Roldan Cataracts Mother Roldan Lymphoma Mother Roldan Hypothyroidism Sister Lisa Melanoma Neg Hx Relation Name Status Comments Brother Harjinder Alive Father Jam Maternal Grandfather Maternal Grandmother Mother Roldan Paternal Grandfather Paternal Grandmother Sister Lisa Alive Son Joshua Alive Social History Tobacco Use Types Packs/Day Years Used Date Smoking Tobacco: Former Cigarettes Smokeless Tobacco: Never Tobacco Cessation:Counseling Given: Not Answered Alcohol Use Standard Drinks/Week Comments Yes 0 (1 standard drink = 0.6 oz pur e alcohol) [facility] [employer] Answer Date Recorded In the past 12 months has [facility] [employer], gas, oil, or water [employer] threatened to shut off services in your [...] How often do you attend chur or scientology services? More than 4 times per year 08/11/2020 Do you belong to any clubs o r organizations such as gnosticist groups, unions, fraternal or athletic groups, or [...] Answer Date Recorded PHQ-2 Score 0 07/19/2021 [facility] - Occupational Stress Questionnaire Answer Date [...] your living situation today? [facility] have a [facility] place to live 10/02/2023 Education Answer Date Recorded What is the highest level of school you have completed or the highest degree you have received? Master's degree (e.g., MA, MS, Rosa Isela, MEd, [employer], CLAUDIA) 09/20/2019 Comments No Sex and Gender Information Value Date Recorded Sex Assigned at Female 12/17/2020 12:33 PM CDT Legal Sex Female 8:20 PM FRENCH INSTRUCTOR Gender Identity Female 09/20/2019 9:51 PM CDT [...] 07/19/2021 11:16 AM CDT Plan of Treatment Health Maintenance Due Date Last Done Comments CT Colonography 1950 FIT 1950 Office Visit for Blood Press ure Check / Re-check 1950 Visit: Medicare Annual Wellness 1950 Colonoscopy 08/29/2014 08/29/2004 Creatinine Level (Kidney Fun ction Test) 07/16/2022 07/16/2021, 08/01/2020, 08/03/2018, Additional history exists Potassium Level 07/16/2022 07/16/2021, 08/01/2020 Sodium Level 07/16/2022 07/16/2021, 08/01/2020 Visit: Chronic Disease, age 18+ 07/19/2022 Depression Screening (Annual PHQ-2) 03/03/2023 Fall Risk Screen (Annual) 03/03/2023 COVID-19 Vaccine (2023- 5 season) 2023 12/06/2022, 11/30/2021, 12/25/2020, Additional history exists Influenza Vaccine (#1) 2023 , 01/08/2021, 12/09/2019, Additional history exists Fasting Glucose for Diabetes Screening 07/16/2024 07/16/2021, 08/01/2020, 01/03/2020, Additional history exists Cologuard 08/12/2024 08/12/2021, 08/2021, 12/15/2018, Additional history exists Colorectal Cancer Screening 08/12/2024 Mammogram 09/15/2024 09/16/2023, 09/01, 09/27/2022, Additional history exists Lipid (Cholesterol) Screening 07/16/2026, 08/01/2020, 01/03/2020, Additional history exists DTaP,Tdap,and Td Vaccines (3 - Td or Tdap) 01/15/2028 01/14/2018, 11/12/2006 Pneumococcal vaccine (65+ years) Completed 11/21/19, 01/04/2015 Zoster Vaccines Completed 03/30/2019, 11/2018, 08/09/2008 RSV vaccine - (32-3 6 weeks) or 60+ years Completed 11/30/2022 Medical Devices Implanted Type Area Hearing Specialist Device Identifier Shelf Expiration Date Model / Serial / Lot Ear Oss Ti Partial System Centered Adj.-Frye [id number] Implanted:Qty: 1 on 06/07/2008 Ear Implant Other/Legacy - See Implant Description Unknown Description:Device Manufactu rer - Partial-centered Model 655 . 3T conditional Body Location - Other. Left. Device Status Text - AUD [id number]. Procedures Procedure Name Priority Date/Time Associated Diagnosis [...] Annual Screening Mammogram ASSESSMENT: BI-RADS: 1: Negative. Mounika Vidal APRN, C.N.P., M.S.N. IM BI PROCE DURES Final Result * Cologuard-Sent Out Lab (08/07/2021 9:30 AM CDT) Result Negative Negative 08/12/2021 10:37 AM CDT [...] Wise et al, N Engl J Med 2014;370(14):8650-7979) The normal value (reference range) for this assay is negative. COLOGUARD RE-SCREENING RECOMMENDATION: Periodic colorectal cancer screening is an important part of preventive healthcare for asymptomatic individuals at average risk for colorectal cancer. ??Following a negative Cologuard result, the [place] [employer] Society and U.S. Multi-Society Task Force screening guidelines recommend a Cologuard re-screening interval of 3 years. References: [place] [employer] Guideline for Colorectal Cancer Screening: https://www.cancer.org/cancer/soebf-oshvhy-rxkjni/detection- diagnosis-staging/acs-recommendations.html.; Jaciel VALLES, Dionne BENAVIDEZ, Danii HAYES, Colorectal Cancer Screening: Recommendations for Physicians and Patients from the U.S. Multi-Society Task Force on Colorectal Cancer Screening , Am J Gastroenterology 2017; 112:6678-5488. TEST DESCRIPTION: Composite algorithmic analysis of stool [...] screened with both Cologuard and colonoscopy. (Chela Jarvis al, N Engl J Med 2014;370(14):5837-7146.) Cologuard may produce a false negative or false positive result (no colorectal cancer or precancerous polyp present at colonoscopy follow up). A negative Cologuard test result does not guarantee the absence of CRC or advanced adenoma (pre-cancer). The current Cologuard screening interval is every 3 years. ([place] [employer] Society and U.S. Multi-Society Task Force). Cologuard performance data in a 10,000 patient pivotal study using colonoscopy as the reference method can be accessed at the following location: www.[employer].com/results. Additional description of the Cologuard test process, warnings and precautions can be found at www.[employer]ogecoInsightrd.com. Stool (Stool) 08/07/2021 9:3 0 AM CDT 08/08/2021 4:59 PM CDT Casey Covarrubias M.D. LAB BODY FLUIDS AND STOOLS ORD ERABLES Final Result [facility] [address] [place] [address] [facility] [address] [facility], [address] [place] [address] * Lipid Panel (07/16/2021 8:38 AM CDT) [...] Covarrubias M.D. LAB BLOOD ADD-ON Final Result [facility] [address] [place] [address], [facility] [place] [address] [place] [address] * Comprehensive Metabolic Panel (07/16/2021 8:38 AM CDT) Pathologist [facility] Potassium, P 4.5 3.6 - 5.2 mmol/L [...] Covarrubias M.D. LAB BLOOD ADD-ON Final Result [facility] [address] [place] [address], [place] [facility] [place] [address] [place] [address] from Last 3 Months or Most Recently Relevant to Health Maintenance Insurance MEDICARE [facility] Care Teams Child Development Assistant Relationship Specialty Start Date End Date Mounika Vidal APRN, C.N.P., M.S.N. [address] [place] [address] PCP - General 09/05/20
== END 2023-12-30 08:24 | disposition home or self-care (01) ==
LOC: NFLDREF 12-31 11:54
PROVIDERS: PCP Family Medicine; Referring Provider Family Medicine; Visit Provider Family Medicine
DX: E78.00 Pure hypercholesterolemia, unspecified (principal); I10 Essential (primary) hypertension; M85.80 Other specified disorders of bone density and structure, unspecified site
CPT/HCPCS: 80053; 80061; 82306

== ENCOUNTER 2024-09-07 14:55 | Outpatient (CLI) | payer MEDICARE, BC, SELFPAY | END 2024-09-07 14:56 | disposition home or self-care (01) | PROVIDERS: PCP Family Medicine; Visit Provider Family Medicine | DX: I10 Essential (primary) hypertension (principal) | CPT/HCPCS: 80053 ==